=== PATIENT | male | born 1980 | race Caucasian/White ===

== ENCOUNTER 2019-04-07 17:38 | Emergency (ER) | payer OTHER ==
[~2019-04-07] VITALS: Ht 182.9 cm; Wt 97.5 kg
[2019-04-08] MEDS ORDERED: CIPRO500 MG PO (03:26)
[2019-04-08] MEDS ORDERED: FLAGYL500MG PO (03:26)
[2019-04-08] MEDS ORDERED: PEPCID AC20 MG PO (03:26)
[2019-04-08] MEDS ORDERED: INTESTINEX680 M1 PO (03:26)
== END 2019-04-08 03:33 ==
LOC: ER 17:38
DX: K58.2 Mixed irritable bowel syndrome (principal)

== ENCOUNTER 2022-10-09 14:19 | Emergency (ER) | payer OTHER ==
[~2022-10-09] VITALS: Ht 188 cm; Wt 117.9 kg
[~2022-10-09 14:19] MED LIST: CIPRO500 MG PO; FLAGYL500MG PO; INTESTINEX680 M1 PO; PEPCID AC20 MG PO
[2022-10-09] MEDS ORDERED: ZOFRAN8 MG PO (18:44)
[2022-10-09] MEDS ORDERED: CIPRO500 MG PO (18:44)
[2022-10-09] MEDS ORDERED: PEPCID AC20 MG PO (18:44)
== END 2022-10-09 18:59 | disposition home or self-care (01) ==
LOC: ER 14:19
DX: K52.9 Noninfective gastroenteritis and colitis, unspecified (principal); R11.2 Nausea with vomiting, unspecified